=== PATIENT | female | born 1970 | race Caucasian/White ===

== ENCOUNTER → 2025-01-03 | Day surgery (SDC) | payer BC ==
[~2025-01-03] MED LIST: ACETAMINOPHEN 1000 MG/100 ML 100 ML IV ONE; ACETAMINOPHEN 1000 MG/100 ML IV PRN; ASPIRIN 325 MG TAB PO SCH; CEFAZOLIN SODIUM 2 GM ONE; CELECOXIB 100 MG CAP PO SCH; DIPHENHYDRAMINE HCL INJ 50 MG/ML VIAL IV PRN; DOCUSATE SODIUM 100 MG CAP PO PRN; EPHEDRINE SULFATE INJ 50 MG/ML VIAL ONE; FAMOTIDINE 20 MG/2 ML VIAL IV ONE; FENTANYL CITRATE/PF 100MCG/2 ML INJ ONE; HYDROCODONE/APAP 5MG-325MG TAB PO PRN; HYDROCODONE/APAP 7.5MG-325MG 1 EA TAB PO PRN; HYDROMORPHONE 2MG/ML ONE; LIDOCAINE HCL 2% LOCAL INJ 5 ML SDV VIAL INJ ONE; METOCLOPRAMIDE HCL 10 MG/2ML VIAL ONE; ONDANSETRON HCL INJ 2MG/ML 2ML 2 MG/ML VIAL IV PRN; ONDANSETRON HCL INJ 2MG/ML 2ML 2 MG/ML VIAL ONE; PROPOFOL IV EMULSION 10 MG/ML 20 ML VIAL ONE; ROCURONIUM BROMIDE 0 ML IV ONE; ROPIVACAINE/EPI/CLONIDINE/KET 50 ML SYRINGE INJ ONE; SODIUM CHLORIDE 0.9% 1000ML 1,000 ML IV SCH; ZEPBOUND2.5 MG/0.5 INJ
[2025-01-03] MEDS: CELECOXIB 200 MG CAP ONE (08:38)
[2025-01-03] MEDS: LACTATED RINGER'S 1,000 ML ONE (08:38)
[2025-01-03] MEDS: GABAPENTIN 300 MG CAP ONE (08:38)
[2025-01-03] MEDS: DEXAMETHASONE 10MG/ML PF INJ ONE (08:39)
[2025-01-03 13:15] VITALS: TEMP 97.1
[2025-01-03 14:30] VITALS: BP 132/82; PULSE 89; RESP 16; O2SAT 98
== END | disposition home or self-care (01) ==
LOC: OR 07:31
PROVIDERS: ATTEND Specialist
DX: M16.12 Unilateral primary osteoarthritis, left hip (principal); M25.552 Pain in left hip; E66.9 Obesity, unspecified; Z68.35 Body mass index [BMI] 35.0-35.9, adult
CPT/HCPCS: 27130; 72170; 86850; 86900; 97116; 97161; C1713 ×2; C1776 ×3; J0131; J1171; J1308; J2003; J2405; J2704; J2765; J3010; J7121